=== PATIENT | female | born 1990 | race African-American/Black ===

== ENCOUNTER 2023-03-05 13:04 | Inpatient (IN) | payer OTHER, SELFPAY ==
[2023-03-05] MEDS ORDERED: Ondansetron PF 4 MG/2 ML Vial ONE (14:09)
[2023-03-05] MEDS ORDERED: metroNIDAZOLE 500 MG/100 ML BAG ONE (14:09)
[2023-03-05] MEDS ORDERED: cefTRIAXone (ROCEPHIN) 1 GM VIAL ONE (14:09)
[2023-03-05 14:12] LABS: Calcium, Ionized (venous) 0.91 mmol/L (1.16-1.32); Chloride (VBG) 93 mmol/L (98-106); Hematocrit-VBG 23 % (36.0-47.0); Hemoglobin (Hb) 7.8 g/dL (11.7-15.5); Potassium (VBG) 2.81 mmol/L (3.70-5.30); Puncture Site Other Site; Sodium 131.4 mmol/L (133-146); pH (venous) 7.494 (7.32-7.43)
[2023-03-05 14:35] LABS: ALT (SGPT) 20 U/L (8-55); AST (SGOT) 119 U/L (5-34); Acetaminophen Less than 10 mcg/mL (10.0-30.0); Albumin 2.2 g/dL (3.5-5.0); Alcohol 79.8 mg/dL (Less than 10); Alkaline Phosphatase 158 U/L (40-110); Anion Gap 13 mmol/L (10-20); BUN (Urea Nitrogen) Less than 4 mg/dL (7.0-18.7); Calc. Creatinine Clearance 0 mL/min (70-130); Carbon Dioxide 33 mmol/L (22-29); Chloride 92 mmol/L (98-107); Estimated GFR 127; Globulin 2.4 g/dL (2.4-3.5); Glucose 106 mg/dL (70-105); Magnesium 1.7 mg/dL (1.6-2.6); Potassium 2.9 mmol/L (3.5-5.1); Protein, Total 4.6 g/dL (6.0-8.3); Salicylate Less than 8.0 mg/dL (15.0-30.0); Sodium 135 mmol/L (136-145)
[2023-03-05 14:41] LABS: Troponin I Less than 0.010 ng/mL (< 0.028)
[2023-03-05 14:46] LABS: Hematocrit 20.1 % (34.9-44.5); Hemoglobin 6.9 g/dL (12.0-15.5); Mean Corpuscular HGB CONC 34.3 g/dL (32.0-36.0); Mean Corpuscular Hemoglobin 29.7 pg (27.0-33.0); Mean Corpuscular Volume 86.6 fl (81.6-98.3); Mean Platelet Volume 10.5 fl (7.4-10.4); Platelet Count 345 10x3/uL (150-450); RBC Distribution Width 17.5 % (11.5-14.5); Red Blood Cell (RBC) Count 2.32 10x6/uL (3.90-5.03); White Blood Cell (WBC) Count 6.6 10x3/uL (3.5-10.5)
[2023-03-05 14:48] LABS: MDiff Complete? YES
[2023-03-05 14:55] LABS: Calcium 6.6 mg/dL (7.8-10.44)
[2023-03-05] MEDS ORDERED: fentaNYL 50 mcg/mL 1 mL Vial ONE (15:02)
[2023-03-05] MEDS ORDERED: Potassium Chloride 20 MEQ/100 ML PREMIX BAG ONE ×2 (15:02→19:22)
[2023-03-05 15:44] LABS: BHCG - Serum Negative (NEGATIVE); Pregs Control Background? CLEAR/WHITE (CLR/WHITE); Pregs Control Bar Appear? YES (CONTROL BAR)
[2023-03-05] MEDS ORDERED: Lorazepam 2 MG/ML VIAL IM PRN (16:18)
[2023-03-05] MEDS ORDERED: Lorazepam 1 MG TAB PO PRN (16:18)
[2023-03-05] MEDS ORDERED: Morphine 2 MG/ML SYRINGE SLOW IVP PRN (16:19)
[2023-03-05] MEDS ORDERED: Electrolyte Replacement Protocol 1 EACH FS SCH (16:30)
[2023-03-05 16:35] LABS: SARS-CoV-2 NAA Rapid Test Not Detected (NotDetected)
[2023-03-05 17:08] LABS: Band 8 % (5-11); Lymphocytes 13 % (21-51); Monocytes 6 % (0-10); Neutrophil 73 % (42-75)
[2023-03-05 17:09] LABS: Anisocytosis SLIGHT = 6-15 cells (100X) (0-5/hpf); Hypochromia SLIGHT = 6-15 cells (100X) (0-5/hpf)
[2023-03-05 17:10] LABS: Dohle Bodies SLIGHT; Platelet Adequacy Comment Appears Adequate; Platelet Clumps SLIGHT; Stomatocytes SLIGHT = 2-5 cells (100X) (0-1/hpf); Target Cells SLIGHT = 2-5 cells (100X) (0-1/hpf); Tear Drops SLIGHT = 2-5 cells (100X) (0-1/hpf)
[2023-03-05] MEDS ORDERED: Thiamine HCl 200 MG/2 ML VIAL ONE (17:37)
[2023-03-05] MEDS ORDERED: Lorazepam 1 MG TAB ONE (17:37)
[2023-03-05] MEDS ORDERED: Octreotide Acetate 50 MCG/ML AMP ONE (17:37)
[2023-03-05] MEDS ORDERED: Morphine 2 MG/ML VIAL ONE (18:15)
[2023-03-05] MEDS ORDERED: Octreotide Acetate 1,250 MCG in Sodium Chloride 0.9% 250 ML 250 ML IVPB SCH (18:30)
[2023-03-05] MEDS ORDERED: Octreotide Acetate 50 MCG/ML AMP SLOW IVP SCH (18:30)
[2023-03-05 18:53] LABS: Amphetamine Not Detected (NotDetected); Barbiturates Screen Not Detected (NotDetected); Benzodiazepine Screen Detected (NotDetected); Cocaine Metabolite Screen Not Detected (NotDetected); Methadone Not Detected (NotDetected); Methamphetamine Not Detected (NotDetected); Opiate Screen Not Detected (NotDetected); Oxycodone Screen Not Detected (NotDetected); Phencyclidine (PCP) Not Detected (NotDetected); THC/Cannabinoid Screen Not Detected (NotDetected); Tricyclic Screen Not Detected (NotDetected)
[2023-03-05 19:00] LABS: Hematocrit 24.4 % (34.9-44.5); Hemoglobin 8.4 g/dL (12.0-15.5); Mean Corpuscular HGB CONC 34.4 g/dL (32.0-36.0); Mean Corpuscular Hemoglobin 29.6 pg (27.0-33.0); Mean Corpuscular Volume 85.9 fl (81.6-98.3); Mean Platelet Volume 10.4 fl (7.4-10.4); Platelet Count 304 10x3/uL (150-450); RBC Distribution Width 16.3 % (11.5-14.5); Red Blood Cell (RBC) Count 2.84 10x6/uL (3.90-5.03); White Blood Cell (WBC) Count 6.9 10x3/uL (3.5-10.5)
[2023-03-05 19:12] LABS: ALT (SGPT) 23 U/L (8-55); AST (SGOT) 123 U/L (5-34); Albumin 2.4 g/dL (3.5-5.0); Alkaline Phosphatase 162 U/L (40-110); Anion Gap 13 mmol/L (10-20); BUN (Urea Nitrogen) Less than 4 mg/dL (7.0-18.7); Bilirubin, Total 2.7 mg/dL (0.2-1.2); Calc. Creatinine Clearance 0 mL/min (70-130); Carbon Dioxide 31 mmol/L (22-29); Chloride 93 mmol/L (98-107); Estimated GFR 125; Globulin 2.4 g/dL (2.4-3.5); Glucose 114 mg/dL (70-105); Potassium 3.1 mmol/L (3.5-5.1); Protein, Total 4.8 g/dL (6.0-8.3); Sodium 134 mmol/L (136-145)
[2023-03-05 19:14] LABS: Calcium 6.7 mg/dL (7.8-10.44)
[2023-03-05 19:43] LABS: MDiff Complete? YES
[2023-03-05 19:47] LABS: Band 7 % (5-11); Lymphocytes 4 % (21-51); Monocytes 1 % (0-10); Myelocyte 1 % (0-0); Neutrophil 87 % (42-75)
[2023-03-05 19:48] LABS: Anisocytosis SLIGHT = 6-15 cells (100X) (0-5/hpf); Hypochromia SLIGHT = 6-15 cells (100X) (0-5/hpf); Schistocytes SLIGHT = 2-5 cells (100X) (0-1/hpf)
[2023-03-05 19:53] LABS: Ovalocytes SLIGHT = 2-5 cells (100X) (0-1/hpf); Platelet Adequacy Comment Appears Adequate
[2023-03-05 19:54] LABS: Large Platelets SLIGHT (None Seen)
[2023-03-05 19:55] LABS: Platelet Clumps SLIGHT
[2023-03-05] MEDS: Lorazepam 1 MG TAB PO SCH ×2 (20:16→22:57)
[2023-03-05] MEDS: Ondansetron PF 4 MG/2 ML Vial IVP PRN (20:26)
[2023-03-05] MEDS: Thiamine HCl 200 MG/2 ML VIAL SLOW IVP SCH (20:27)
[2023-03-05] MEDS ORDERED: Magnesium 2 GM/50 ML(in water) 2 GM in Premix Bag 1 BAG IVPB SCH (20:30)
[2023-03-05] MEDS: metroNIDAZOLE 500 MG in Premix Bag 1 BAG IVPB SCH (21:05)
[2023-03-05] MEDS: Morphine 2 MG/ML VIAL SLOW IVP PRN (21:37)
[2023-03-05] MEDS ORDERED: Sodium Chloride 0.9% 1,000 ML IV SCH (23:00)
[2023-03-06] MEDS: Acetaminophen 325 MG TAB PO PRN ×2 (00:14→21:44)
[2023-03-06 01:35] LABS: ALT (SGPT) 22 U/L (8-55); AST (SGOT) 105 U/L (5-34); Albumin 2.6 g/dL (3.5-5.0); Alkaline Phosphatase 198 U/L (40-110); Bilirubin, Direct 1.9 mg/dL (0.1-0.3); Bilirubin, Total 3.3 mg/dL (0.2-1.2); Protein, Total 5.2 g/dL (6.0-8.3)
[2023-03-06 01:38] LABS: ALT (SGPT) 23 U/L (8-55); AST (SGOT) 107 U/L (5-34); Albumin 2.7 g/dL (3.5-5.0); Alkaline Phosphatase 202 U/L (40-110); Anion Gap 17 mmol/L (10-20); BUN (Urea Nitrogen) 4 mg/dL (7.0-18.7); Bilirubin, Total 3.3 mg/dL (0.2-1.2); Calc. Creatinine Clearance 137 mL/min (70-130); Calcium 7.3 mg/dL (7.8-10.44); Carbon Dioxide 28 mmol/L (22-29); Cardiac Risk 2.5 (Less than 4.5); Chloride 94 mmol/L (98-107); Cholesterol 56 mg/dl (< 200 Desired); Estimated GFR 125; Globulin 2.7 g/dL (2.4-3.5); Glucose 113 mg/dL (70-105); HDL Cholesterol 22 mg/dL (>60 Neg Risk); LDL Cholesterol, Calculated 23 mg/dL; Potassium 3.5 mmol/L (3.5-5.1); Protein, Total 5.4 g/dL (6.0-8.3); Sodium 135 mmol/L (136-145); Triglycerides 54 mg/dL (Less than 150)
[2023-03-06 01:47] LABS: #Monocytes 0.7 10x3/uL (0.0-1.1); #Neutrophils 8.4 10x3/uL (1.5-8.4); %Basophils 0.2 % (0.0-2.0); %Eosinophils 0.2 % (0.0-6.0); %Lymphocytes 7.4 % (18.0-47.0); %Neutrophils 84.3 % (40.0-75.0); Hematocrit 28.9 % (34.9-44.5); Mean Corpuscular HGB CONC 34.6 g/dL (32.0-36.0); Mean Corpuscular Hemoglobin 29.8 pg (27.0-33.0); Mean Platelet Volume 11.1 fl (7.4-10.4); Platelet Count 355 10x3/uL (150-450); RBC Distribution Width 16.3 % (11.5-14.5); Red Blood Cell (RBC) Count 3.36 10x6/uL (3.90-5.03)
[2023-03-06] MEDS: metroNIDAZOLE 500 MG in Premix Bag 1 BAG IVPB SCH ×4 (02:33→20:31)
[2023-03-06] MEDS: Lorazepam 1 MG TAB PO SCH ×4 (04:48→21:44)
[2023-03-06] MEDS: Morphine 2 MG/ML VIAL SLOW IVP PRN ×5 (06:14→23:01)
[2023-03-06] MEDS: Folic Acid 1 MG TAB PO SCH (08:26)
[2023-03-06] MEDS: Multivit, Therapeutic 1 TAB PO SCH (08:26)
[2023-03-06] MEDS: Ondansetron PF 4 MG/2 ML Vial IVP PRN (11:52)
[2023-03-06] MEDS ORDERED: Lorazepam 1 MG TAB PO PRN (16:18)
[2023-03-06] MEDS: cefTRIAXone\\ROCEPHIN 1 GM in Sodium Chloride 0.9% 100 ML IVPB SCH (16:42)
[2023-03-06] MEDS ORDERED: Sodium Chloride 0.9% 1,000 ML IV SCH (17:30)
[2023-03-06] MEDS: Sodium Chloride 0.9% 1,000 ML IV SCH (18:09)
[2023-03-06 19:34] LABS: Lactic Acid 1.3 mmol/L (0.5-2.2)
[2023-03-06] MEDS: Thiamine HCl 200 MG/2 ML VIAL SLOW IVP SCH (20:31)
[2023-03-06] MEDS: Pantoprazole 40 MG VIAL IVP SCH (21:51)
[2023-03-06 21:58] LABS: Bilirubin Neg (Negative); Blood, Urine Negative (Negative); Clarity Clear (Clear); Glucose, Urine (Dipstick) Normal (Negative); Ketone, Urine Negative (Negative); Leukocyte 25 (Negative); Nitrite Negative (Negative); Protein, Urine (Dipstick) 15 mg/dl (Neg-Trace)
[2023-03-06 22:58] LABS: RBC/HPF None Seen HPF (0-3); Squamous Epithelial 0-3 HPF (0-3); WBC/HPF 0-3 HPF (0-3)
[2023-03-06 22:59] LABS: Bacteria/HPF None Seen HPF (None Seen)
[2023-03-07 00:06] LABS: Hematocrit 26.6 % (34.9-44.5); Hemoglobin 9.4 g/dL (12.0-15.5); Mean Corpuscular HGB CONC 35.3 g/dL (32.0-36.0); Mean Corpuscular Hemoglobin 30.2 pg (27.0-33.0); Mean Corpuscular Volume 85.5 fl (81.6-98.3); Mean Platelet Volume 11.7 fl (7.4-10.4); Platelet Count 296 10x3/uL (150-450); RBC Distribution Width 16.5 % (11.5-14.5); Red Blood Cell (RBC) Count 3.11 10x6/uL (3.90-5.03); White Blood Cell (WBC) Count 10.8 10x3/uL (3.5-10.5)
[2023-03-07 00:17] LABS: Anion Gap 11 mmol/L (10-20); BUN (Urea Nitrogen) Less than 4 mg/dL (7.0-18.7); Calc. Creatinine Clearance 167 mL/min (70-130); Calcium 7.1 mg/dL (7.8-10.44); Carbon Dioxide 27 mmol/L (22-29); Chloride 98 mmol/L (98-107); Estimated GFR 131; Glucose 84 mg/dL (70-105); Magnesium 1.5 mg/dL (1.6-2.6); Potassium 3.1 mmol/L (3.5-5.1); Sodium 133 mmol/L (136-145)
[2023-03-07 00:22] LABS: Phosphorus Less than 1.0 mg/dL (2.3-4.7)
[2023-03-07] MEDS ORDERED: Magnesium 2 GM/50 ML(in water) 2 GM in Premix Bag 1 BAG IVPB SCH ×2 (00:30→14:30)
[2023-03-07] MEDS ORDERED: Potassium Chloride 20 MEQ TAB PO SCH ×2 (00:30→14:30)
[2023-03-07] MEDS ORDERED: Potassium Phosphate 30 MMOL in Sodium Chloride 0.9% 250 ML 250 ML IVPB SCH ×3 (00:30→09:00)
[2023-03-07 00:48] LABS: Band 36 % (5-11); Lymphocytes 6 % (21-51); Myelocyte 3 % (0-0); Nucleated RBC (Manual Ct) 1 % (0)
[2023-03-07 00:52] LABS: Metamyelocyte 4 % (0-0)
[2023-03-07 00:53] LABS: Monocytes 5 % (0-10)
[2023-03-07 00:54] LABS: Neutrophil 44 % (42-75)
[2023-03-07 00:56] LABS: Anisocytosis SLIGHT = 6-15 cells (100X) (0-5/hpf); Microcytosis SLIGHT = 6-15 cells (100X) (0-5/hpf); Polychromasia SLIGHT = 2-3 cells (100X) (0-2/hpf)
[2023-03-07 00:57] LABS: Ovalocytes SLIGHT = 2-5 cells (100X) (0-1/hpf)
[2023-03-07 00:58] LABS: Giant Platelets SLIGHT HPF (0-5); Large Platelets SLIGHT (None Seen); Platelet Adequacy Comment Appears Adequate; Platelet Clumps MODERATE
[2023-03-07 00:59] LABS: Dohle Bodies MODERATE
[2023-03-07 01:00] LABS: Hypochromia SLIGHT = 6-15 cells (100X) (0-5/hpf); Smudge Cells SLIGHT; Toxic Granulation MODERATE
[2023-03-07 01:01] LABS: MDiff Complete? YES
[2023-03-07] MEDS: metroNIDAZOLE 500 MG in Premix Bag 1 BAG IVPB SCH ×4 (02:28→19:54)
[2023-03-07] MEDS: Sodium Chloride 0.9% 1,000 ML IV SCH ×3 (02:29→19:53)
[2023-03-07] MEDS: Morphine 2 MG/ML VIAL SLOW IVP PRN ×5 (03:45→20:36)
[2023-03-07] MEDS: Lorazepam 1 MG TAB PO SCH ×3 (05:23→10:24)
[2023-03-07] MEDS: Ondansetron ODT 4 MG TAB PO PRN ×2 (05:50→19:54)
[2023-03-07 06:12] LABS: Hematocrit 28.8 % (34.9-44.5); Hemoglobin 10.1 g/dL (12.0-15.5); Mean Corpuscular HGB CONC 35.1 g/dL (32.0-36.0); Mean Corpuscular Hemoglobin 30.3 pg (27.0-33.0); Mean Corpuscular Volume 86.5 fl (81.6-98.3); Mean Platelet Volume 11.4 fl (7.4-10.4); Platelet Count 276 10x3/uL (150-450); RBC Distribution Width 16.6 % (11.5-14.5); Red Blood Cell (RBC) Count 3.33 10x6/uL (3.90-5.03); White Blood Cell (WBC) Count 15.4 10x3/uL (3.5-10.5)
[2023-03-07 06:23] LABS: ALT (SGPT) 22 U/L (8-55); AST (SGOT) 143 U/L (5-34); Albumin 2.5 g/dL (3.5-5.0); Alkaline Phosphatase 180 U/L (40-110); Anion Gap 15 mmol/L (10-20); BUN (Urea Nitrogen) Less than 4 mg/dL (7.0-18.7); Bilirubin, Total 2.7 mg/dL (0.2-1.2); Calc. Creatinine Clearance 158 mL/min (70-130); Calcium 7.2 mg/dL (7.8-10.44); Carbon Dioxide 27 mmol/L (22-29); Chloride 98 mmol/L (98-107); Estimated GFR 129; Globulin 2.7 g/dL (2.4-3.5); Glucose 70 mg/dL (70-105); Lipase 179 U/L (8-78); Magnesium 1.7 mg/dL (1.6-2.6); Potassium 3.5 mmol/L (3.5-5.1); Protein, Total 5.2 g/dL (6.0-8.3); Sodium 136 mmol/L (136-145)
[2023-03-07 06:28] LABS: Band 58 % (5-11); Lymphocytes 7 % (21-51); Metamyelocyte 15 % (0-0); Monocytes 4 % (0-10); Myelocyte 1 % (0-0)
[2023-03-07 06:31] LABS: Dohle Bodies SLIGHT; Platelet Adequacy Comment Appears Decreased; Toxic Granulation SLIGHT
[2023-03-07 06:34] LABS: Anisocytosis SLIGHT = 6-15 cells (100X) (0-5/hpf); Hypochromia SLIGHT = 6-15 cells (100X) (0-5/hpf); Microcytosis SLIGHT = 6-15 cells (100X) (0-5/hpf); Ovalocytes SLIGHT = 2-5 cells (100X) (0-1/hpf)
[2023-03-07 06:38] LABS: MDiff Complete? YES
[2023-03-07] MEDS: Acetaminophen 325 MG TAB PO PRN ×3 (07:59→20:41)
[2023-03-07] MEDS: Multivit, Therapeutic 1 TAB PO SCH (08:19)
[2023-03-07] MEDS: Folic Acid 1 MG TAB PO SCH (08:19)
[2023-03-07] MEDS: Pantoprazole 40 MG VIAL IVP SCH ×2 (08:19→19:53)
[2023-03-07] MEDS ORDERED: Electrolyte Replacement Protocol FS PRN (14:30)
[2023-03-07] MEDS ORDERED: Lorazepam 1 MG TAB PO PRN (16:18)
[2023-03-07] MEDS: Lorazepam 0.5 MG TAB PO SCH ×2 (16:32→22:16)
[2023-03-07] MEDS: cefTRIAXone\\ROCEPHIN 1 GM in Sodium Chloride 0.9% 100 ML IVPB SCH (16:32)
[2023-03-07] MEDS: Thiamine HCl 200 MG/2 ML VIAL SLOW IVP SCH (19:53)
[2023-03-08] MEDS: metroNIDAZOLE 500 MG in Premix Bag 1 BAG IVPB SCH ×4 (01:25→20:17)
[2023-03-08] MEDS: Morphine 2 MG/ML VIAL SLOW IVP PRN ×6 (01:25→22:38)
[2023-03-08 03:35] LABS: ALT (SGPT) 28 U/L (8-55); AST (SGOT) 143 U/L (5-34); Alkaline Phosphatase 151 U/L (40-110); Anion Gap 10 mmol/L (10-20); BUN (Urea Nitrogen) Less than 4 mg/dL (7.0-18.7); Bilirubin, Total 1.4 mg/dL (0.2-1.2); Calc. Creatinine Clearance 176 mL/min (70-130); Carbon Dioxide 26 mmol/L (22-29); Chloride 103 mmol/L (98-107); Estimated GFR 133; Globulin 2.1 g/dL (2.4-3.5); Glucose 79 mg/dL (70-105); Magnesium 1.7 mg/dL (1.6-2.6); Potassium 2.9 mmol/L (3.5-5.1); Protein, Total 4.1 g/dL (6.0-8.3); Sodium 136 mmol/L (136-145)
[2023-03-08 03:45] LABS: Hematocrit 22.9 % (34.9-44.5); Mean Corpuscular HGB CONC 34.9 g/dL (32.0-36.0); Mean Corpuscular Hemoglobin 30.2 pg (27.0-33.0); Mean Corpuscular Volume 86.4 fl (81.6-98.3); Mean Platelet Volume 11.6 fl (7.4-10.4); Platelet Count 219 10x3/uL (150-450); RBC Distribution Width 16.7 % (11.5-14.5); Red Blood Cell (RBC) Count 2.65 10x6/uL (3.90-5.03); White Blood Cell (WBC) Count 11.9 10x3/uL (3.5-10.5)
[2023-03-08 03:47] LABS: MDiff Complete? YES
[2023-03-08 04:08] LABS: Calcium 6.7 mg/dL (7.6-10.4)
[2023-03-08 04:15] LABS: Platelet Adequacy Comment Appears Adequate
[2023-03-08] MEDS ORDERED: Potassium Chloride 20 MEQ TAB PO SCH ×3 (04:15→16:00)
[2023-03-08 04:16] LABS: Microcytosis SLIGHT = 6-15 cells (100X) (0-5/hpf)
[2023-03-08] MEDS: Lorazepam 0.5 MG TAB PO SCH ×2 (04:19→10:31)
[2023-03-08] MEDS: Sodium Chloride 0.9% 1,000 ML IV SCH ×3 (04:19→20:16)
[2023-03-08 04:23] LABS: Band 12 % (5-11); Lymphocytes 9 % (21-51); Metamyelocyte 1 % (0-0); Monocytes 10 % (0-10); Neutrophil 68 % (42-75)
[2023-03-08] MEDS: Ondansetron PF 4 MG/2 ML Vial IVP PRN ×3 (04:33→22:43)
[2023-03-08] MEDS: Ondansetron ODT 4 MG TAB PO PRN (08:23)
[2023-03-08] MEDS: Acetaminophen 325 MG TAB PO PRN ×2 (08:23→20:15)
[2023-03-08] MEDS: Folic Acid 1 MG TAB PO SCH (08:24)
[2023-03-08] MEDS: Pantoprazole 40 MG VIAL IVP SCH ×2 (08:24→20:16)
[2023-03-08] MEDS: Multivit, Therapeutic 1 TAB PO SCH (08:24)
[2023-03-08] MEDS: PHOS-NAK 1 PKT PACK PO SCH ×2 (10:34→15:09)
[2023-03-08] MEDS ORDERED: Magnesium 2 GM/50 ML(in water) 2 GM in Premix Bag 1 BAG IVPB SCH (10:45)
[2023-03-08] MEDS ORDERED: HYDROmorphone 0.5 MG/0.5 ML SYRINGE SLOW IVP SCH (11:00)
[2023-03-08 12:07] LABS: Potassium 3.6 mmol/L (3.5-5.1)
[2023-03-08] MEDS: cefTRIAXone\\ROCEPHIN 1 GM in Sodium Chloride 0.9% 100 ML IVPB SCH (15:13)
[2023-03-08] MEDS ORDERED: Lorazepam 0.5 MG TAB PO PRN (16:18)
[2023-03-08] MEDS ORDERED: Morphine 2 MG/ML VIAL SLOW IVP SCH (20:15)
[2023-03-08] MEDS: Thiamine 100 MG TAB PO SCH (20:21)
[2023-03-08] MEDS: Vancomycin HCl 125 MG Capsule PO SCH (20:41)
[2023-03-08] MEDS: HYDROcodone/Acetaminophen 5/325 mg Tablet PO PRN (23:09)
[2023-03-09] MEDS: metroNIDAZOLE 500 MG in Premix Bag 1 BAG IVPB SCH ×4 (01:04→19:48)
[2023-03-09 01:45] LABS: Campy jejuni + coli by PCR Negative (Negative); STEC Shiga Toxin 1+2 Negative (Negative); Salmonella spp. by PCR Negative (Negative); Shigella spp + EIEC by PCR Negative (Negative)
[2023-03-09] MEDS: Sodium Chloride 0.9% 1,000 ML IV SCH ×3 (02:23→18:35)
[2023-03-09] MEDS: Vancomycin HCl 125 MG Capsule PO SCH ×4 (02:23→22:05)
[2023-03-09] MEDS: Morphine 2 MG/ML VIAL SLOW IVP PRN ×6 (02:23→20:32)
[2023-03-09] MEDS ORDERED: Metoclopramide HCl 10 MG/2 ML VIAL IVP SCH (03:00)
[2023-03-09 03:45] LABS: Hematocrit 24.6 % (34.9-44.5); Hemoglobin 8.5 g/dL (12.0-15.5); Mean Corpuscular HGB CONC 34.6 g/dL (32.0-36.0); Mean Corpuscular Hemoglobin 30.9 pg (27.0-33.0); Mean Corpuscular Volume 89.5 fl (81.6-98.3); Mean Platelet Volume 11.2 fl (7.4-10.4); Platelet Count 220 10x3/uL (150-450); RBC Distribution Width 17.7 % (11.5-14.5); Red Blood Cell (RBC) Count 2.75 10x6/uL (3.90-5.03); White Blood Cell (WBC) Count 8.5 10x3/uL (3.5-10.5)
[2023-03-09 03:50] LABS: MDiff Complete? YES
[2023-03-09 03:52] LABS: ALT (SGPT) 27 U/L (8-55); AST (SGOT) 99 U/L (5-34); Alkaline Phosphatase 170 U/L (40-110); Anion Gap 10 mmol/L (10-20); BUN (Urea Nitrogen) Less than 4 mg/dL (7.0-18.7); Bilirubin, Total 1.2 mg/dL (0.2-1.2); Calc. Creatinine Clearance 180 mL/min (70-130); Carbon Dioxide 23 mmol/L (22-29); Chloride 104 mmol/L (98-107); Estimated GFR 133; Globulin 2.2 g/dL (2.4-3.5); Glucose 70 mg/dL (70-105); Magnesium 1.6 mg/dL (1.6-2.6); Phosphorus 2.1 mg/dL (2.3-4.7); Potassium 4.1 mmol/L (3.5-5.1); Protein, Total 4.2 g/dL (6.0-8.3); Sodium 133 mmol/L (136-145)
[2023-03-09 04:23] LABS: Calcium 6.8 mg/dL (7.8-10.44)
[2023-03-09 04:25] LABS: Platelet Adequacy Comment Appears Adequate
[2023-03-09 04:27] LABS: Microcytosis SLIGHT = 6-15 cells (100X) (0-5/hpf)
[2023-03-09 04:32] LABS: Band 14 % (5-11); Lymphocytes 13 % (21-51); Metamyelocyte 3 % (0-0); Monocytes 14 % (0-10); Neutrophil 56 % (42-75)
[2023-03-09] MEDS: Ondansetron PF 4 MG/2 ML Vial IVP PRN ×4 (08:01→22:35)
[2023-03-09] MEDS: Multivit, Therapeutic 1 TAB PO SCH (08:02)
[2023-03-09] MEDS: Folic Acid 1 MG TAB PO SCH (08:02)
[2023-03-09] MEDS: Pantoprazole 40 MG VIAL IVP SCH ×2 (08:02→19:48)
[2023-03-09] MEDS: HYDROcodone/Acetaminophen 5/325 mg Tablet PO PRN ×3 (08:26→22:30)
[2023-03-09] MEDS ORDERED: Magnesium 2 GM/50 ML(in water) 2 GM in Premix Bag 1 BAG IVPB SCH (09:00)
[2023-03-09 10:24] VITALS: BMI 23.5
[2023-03-09] MEDS: cefTRIAXone\\ROCEPHIN 1 GM in Sodium Chloride 0.9% 100 ML IVPB SCH (15:56)
[2023-03-09] MEDS ORDERED: Simethicone Chewable 80 MG TAB PO PRN (16:00)
[2023-03-09] MEDS ORDERED: Ketorolac Tromethamine 30 MG/ML VIAL IVP SCH (16:00)
[2023-03-09] MEDS: Thiamine 100 MG TAB PO SCH (19:48)
[2023-03-09] MEDS: Ketorolac Tromethamine 30 MG/ML VIAL IVP PRN (23:27)
[2023-03-10] MEDS: Morphine 2 MG/ML VIAL SLOW IVP PRN ×5 (00:31→21:26)
[2023-03-10] MEDS: metroNIDAZOLE 500 MG in Premix Bag 1 BAG IVPB SCH ×4 (02:25→21:26)
[2023-03-10] MEDS: Vancomycin HCl 125 MG Capsule PO SCH ×4 (03:22→22:40)
[2023-03-10] MEDS: HYDROcodone/Acetaminophen 5/325 mg Tablet PO PRN ×3 (03:30→23:14)
[2023-03-10] MEDS: Ondansetron PF 4 MG/2 ML Vial IVP PRN ×3 (03:36→21:26)
[2023-03-10 03:56] LABS: Hematocrit 25.3 % (34.9-44.5); Hemoglobin 8.6 g/dL (12.0-15.5); Mean Corpuscular Hemoglobin 30.6 pg (27.0-33.0); Mean Platelet Volume 10.8 fl (7.4-10.4); Platelet Count 273 10x3/uL (150-450); RBC Distribution Width 18.9 % (11.5-14.5); Red Blood Cell (RBC) Count 2.81 10x6/uL (3.90-5.03); White Blood Cell (WBC) Count 6.3 10x3/uL (3.5-10.5)
[2023-03-10 04:02] LABS: MDiff Complete? YES
[2023-03-10 04:14] LABS: Phosphorus 2.3 mg/dL (2.3-4.7)
[2023-03-10 04:17] LABS: ALT (SGPT) 23 U/L (8-55); AST (SGOT) 72 U/L (5-34); Alkaline Phosphatase 176 U/L (40-110); Anion Gap 10 mmol/L (10-20); BUN (Urea Nitrogen) Less than 4 mg/dL (7.0-18.7); Calc. Creatinine Clearance 176 mL/min (70-130); Carbon Dioxide 22 mmol/L (22-29); Chloride 105 mmol/L (98-107); Estimated GFR 133; Globulin 2.2 g/dL (2.4-3.5); Glucose 79 mg/dL (70-105); Magnesium 1.5 mg/dL (1.6-2.6); Potassium 3.5 mmol/L (3.5-5.1); Protein, Total 4.2 g/dL (6.0-8.3); Sodium 133 mmol/L (136-145)
[2023-03-10 04:18] LABS: Platelet Adequacy Comment Appears Adequate; RBC Morph Comment Within Normal Limits
[2023-03-10 04:20] LABS: Band 10 % (5-11); Eosinophils 1 % (0-10); Lymphocytes 15 % (21-51); Metamyelocyte 1 % (0-0); Monocytes 10 % (0-10); Neutrophil 63 % (42-75)
[2023-03-10] MEDS: Sodium Chloride 0.9% 1,000 ML IV SCH ×2 (04:55→10:41)
[2023-03-10] MEDS ORDERED: Magnesium 2 GM/50 ML(in water) 2 GM in Premix Bag 1 BAG IVPB SCH (08:00)
[2023-03-10] MEDS ORDERED: Potassium Chloride 20 MEQ TAB PO SCH (08:00)
[2023-03-10] MEDS: Multivit, Therapeutic 1 TAB PO SCH (08:26)
[2023-03-10] MEDS: Pantoprazole 40 MG VIAL IVP SCH (08:26)
[2023-03-10] MEDS: Folic Acid 1 MG TAB PO SCH (08:26)
[2023-03-10] MEDS: Saccharomyces boulardii 250 MG CAP PO SCH (08:27)
[2023-03-10] MEDS: Ketorolac Tromethamine 30 MG/ML VIAL IVP PRN ×2 (09:43→18:54)
[2023-03-10 13:37] LABS: Potassium 4.4 mmol/L (3.5-5.1)
[2023-03-10] MEDS: cefTRIAXone\\ROCEPHIN 1 GM in Sodium Chloride 0.9% 100 ML IVPB SCH (17:00)
[2023-03-10] MEDS: Thiamine 100 MG TAB PO SCH (21:26)
[2023-03-11] MEDS: metroNIDAZOLE 500 MG in Premix Bag 1 BAG IVPB SCH ×4 (03:30→20:36)
[2023-03-11] MEDS: Vancomycin HCl 125 MG Capsule PO SCH ×4 (03:30→20:37)
[2023-03-11] MEDS: Sodium Chloride 0.9% 1,000 ML IV SCH ×3 (03:30→22:34)
[2023-03-11] MEDS: Morphine 2 MG/ML VIAL SLOW IVP PRN ×4 (04:20→20:38)
[2023-03-11] MEDS: Ondansetron PF 4 MG/2 ML Vial IVP PRN ×2 (04:20→22:35)
[2023-03-11 05:33] LABS: Hematocrit 30.6 % (34.9-44.5); Hemoglobin 9.9 g/dL (12.0-15.5); Mean Corpuscular HGB CONC 32.4 g/dL (32.0-36.0); Mean Corpuscular Hemoglobin 30.1 pg (27.0-33.0); Mean Platelet Volume 11.7 fl (7.4-10.4); Platelet Count 388 10x3/uL (150-450); RBC Distribution Width 20.5 % (11.5-14.5); Red Blood Cell (RBC) Count 3.29 10x6/uL (3.90-5.03); White Blood Cell (WBC) Count 6.3 10x3/uL (3.5-10.5)
[2023-03-11 05:56] LABS: ALT (SGPT) 21 U/L (8-55); AST (SGOT) 57 U/L (5-34); Albumin 2.4 g/dL (3.5-5.0); Alkaline Phosphatase 208 U/L (40-110); Anion Gap 17 mmol/L (10-20); BUN (Urea Nitrogen) Less than 4 mg/dL (7.0-18.7); Calc. Creatinine Clearance 155 mL/min (70-130); Calcium 7.6 mg/dL (7.8-10.44); Carbon Dioxide 20 mmol/L (22-29); Chloride 102 mmol/L (98-107); Estimated GFR 129; Globulin 2.7 g/dL (2.4-3.5); Glucose 69 mg/dL (70-105); Iron 52 ug/dL (50-170); Potassium 3.8 mmol/L (3.5-5.1); Protein, Total 5.1 g/dL (6.0-8.3); Sodium 135 mmol/L (136-145)
[2023-03-11 06:35] LABS: MDiff Complete? YES
[2023-03-11 06:37] LABS: Platelet Adequacy Comment Appears Adequate; RBC Morph Comment Within Normal Limits
[2023-03-11 06:39] LABS: Band 10 % (5-11); Lymphocytes 17 % (21-51); Metamyelocyte 1 % (0-0); Monocytes 10 % (0-10); Neutrophil 62 % (42-75)
[2023-03-11] MEDS: Multivit, Therapeutic 1 TAB PO SCH (08:34)
[2023-03-11] MEDS: Saccharomyces boulardii 250 MG CAP PO SCH (08:34)
[2023-03-11] MEDS: Folic Acid 1 MG TAB PO SCH (08:35)
[2023-03-11] MEDS: Ondansetron ODT 4 MG TAB PO PRN ×2 (08:35→15:34)
[2023-03-11] MEDS ORDERED: Iopamidol 300 61% 100 ML VIAL FS ONE (09:07)
[2023-03-11] MEDS: HYDROcodone/Acetaminophen 5/325 mg Tablet PO PRN (12:15)
[2023-03-11] MEDS: Dicyclomine 10 MG CAP PO SCH ×2 (17:01→22:35)
[2023-03-11] MEDS: Thiamine 100 MG TAB PO SCH (20:37)
[2023-03-11] MEDS: LevoFLOXacin 750 mg/D5W 750 MG in Premix Bag 1 BAG IVPB SCH (22:35)
[2023-03-12] MEDS: Morphine 2 MG/ML VIAL SLOW IVP PRN ×5 (00:34→20:47)
[2023-03-12] MEDS: Vancomycin HCl 125 MG Capsule PO SCH ×4 (03:27→20:56)
[2023-03-12] MEDS: metroNIDAZOLE 500 MG in Premix Bag 1 BAG IVPB SCH ×3 (03:27→14:40)
[2023-03-12 04:05] LABS: Hematocrit 26.7 % (34.9-44.5); Hemoglobin 8.8 g/dL (12.0-15.5); Platelet Count 445 10x3/uL (150-450)
[2023-03-12] MEDS: Ondansetron ODT 4 MG TAB PO PRN ×3 (09:33→20:45)
[2023-03-12] MEDS: Multivit, Therapeutic 1 TAB PO SCH (09:33)
[2023-03-12] MEDS: Dicyclomine 10 MG CAP PO SCH ×4 (09:33→20:45)
[2023-03-12] MEDS: Folic Acid 1 MG TAB PO SCH (09:33)
[2023-03-12] MEDS: Saccharomyces boulardii 250 MG CAP PO SCH (09:33)
[2023-03-12] MEDS: Sodium Chloride 0.9% 1,000 ML IV SCH (15:41)
[2023-03-12] MEDS: Ketorolac Tromethamine 30 MG/ML VIAL IVP PRN (16:11)
[2023-03-12] MEDS: LevoFLOXacin 750 mg/D5W 750 MG in Premix Bag 1 BAG IVPB SCH (20:44)
[2023-03-12] MEDS: Thiamine 100 MG TAB PO SCH (20:53)
[2023-03-13] MEDS: Morphine 2 MG/ML VIAL SLOW IVP PRN ×3 (00:56→12:07)
[2023-03-13 02:58] LABS: ALT (SGPT) 17 U/L (8-55); AST (SGOT) 34 U/L (5-34); Albumin 2.2 g/dL (3.5-5.0); Alkaline Phosphatase 147 U/L (40-110); Anion Gap 11 mmol/L (10-20); BUN (Urea Nitrogen) Less than 4 mg/dL (7.0-18.7); Bilirubin, Total 0.8 mg/dL (0.2-1.2); Calc. Creatinine Clearance 162 mL/min (70-130); Calcium 7.5 mg/dL (7.8-10.44); Carbon Dioxide 26 mmol/L (22-29); Chloride 103 mmol/L (98-107); Estimated GFR 130; Globulin 2.1 g/dL (2.4-3.5); Glucose 83 mg/dL (70-105); Potassium 3.5 mmol/L (3.5-5.1); Protein, Total 4.3 g/dL (6.0-8.3); Sodium 136 mmol/L (136-145)
[2023-03-13] MEDS: Vancomycin HCl 125 MG Capsule PO SCH ×2 (03:16→09:25)
[2023-03-13] MEDS: HYDROcodone/Acetaminophen 5/325 mg Tablet PO PRN ×2 (03:24→10:16)
[2023-03-13] MEDS ORDERED: Metoprolol Tartrate 25 MG TAB PO SCH (05:00)
[2023-03-13 05:05] LABS: Magnesium 1.4 mg/dL (1.6-2.6)
[2023-03-13] MEDS ORDERED: Potassium Chloride 20 MEQ TAB PO SCH ×2 (06:00→12:00)
[2023-03-13] MEDS: Magnesium 2 GM/50 ML(in water) 2 GM in Premix Bag 1 BAG IVPB SCH ×2 (09:23→11:30)
[2023-03-13] MEDS: Multivit, Therapeutic 1 TAB PO SCH (09:25)
[2023-03-13] MEDS: Folic Acid 1 MG TAB PO SCH (09:25)
[2023-03-13] MEDS: Saccharomyces boulardii 250 MG CAP PO SCH (09:25)
[2023-03-13] MEDS: Dicyclomine 10 MG CAP PO SCH ×2 (09:25→12:08)
[2023-03-13 10:51] LABS: Potassium 3.4 mmol/L (3.5-5.1)
[2023-03-13] MEDS: Ondansetron PF 4 MG/2 ML Vial IVP PRN (12:08)
[2023-03-13 14:19] VITALS: BP 124/86; TEMP 98.9
== END 2023-03-13 12:45 | disposition home or self-care (01) | DRG 372 ==
LOC: CSHERS 13:04 → CSHICU 19:45 → CSHTELE 03-10 13:07
PROVIDERS: ADMIT Internal Medicine; ATTEND Family Medicine
PROC: 30233N1 Transfusion of Nonautologous Red Blood Cells into Peripheral Vein, Percutaneous Approach (ICD-10-PCS; principal; 2023-03-05)
PROC: 4A043R1 Measurement of Venous Saturation, Peripheral, Percutaneous Approach (ICD-10-PCS; 2023-03-05)
DX: A04.72 Enterocolitis due to Clostridium difficile, not specified as recurrent (principal); F10.239 Alcohol dependence with withdrawal, unspecified; E87.6 Hypokalemia; D64.9 Anemia, unspecified; R74.01 Elevation of levels of liver transaminase levels; K70.11 Alcoholic hepatitis with ascites; E83.39 Other disorders of phosphorus metabolism; Z20.822 Contact with and (suspected) exposure to COVID-19; Z88.0 Allergy status to penicillin; Z98.890 Other specified postprocedural states
CPT/HCPCS: 36415; 36430; 71045; 74177; 76705; 80053; 80061; 80306; 80307; 81001; 82728; 82805; 83036; 83540; 83605; 83630; 83690; 83735; 84100; 84443; 84484; 84703; 85014; 85018; 85025; 85046; 85049; 86850; 86900; 86901; 87040; 87086; 87324; 87449; 87505; 93005; 93010; 94760; 94762; 96374; 96375; 96376; C9113; J0696; J1170; J1885; J1956; J2270; J2272; J2354; J2405; J2765; J3010; J3411; J3475; J3480; J3490; J7050; P9016; Q0162; Q9967